=== PATIENT | female | born 1990 | race Caucasian/White ===

== ENCOUNTER 2019-07-24 09:04 | Emergency (ER) | payer OTHER ==
[2019-07-24 09:12] VITALS: BP 89/54; PULSE 82; TEMP 97.5; BMI 19.5
[2019-07-24] MEDS ORDERED: DEXAMETHASONE LIQUID 0.5 MG/5 ML PO ONE (09:16)
[2019-07-24] MEDS ORDERED: DEXAMETHASONE SOD PHOSPHATE 10 MG/1 ML VIAL ONE (09:21)
--- NOTE | 2019-07-24 09:27 | PDOC ---
History of Present Illness - General Chief Complaint: Hives Stated Complaint: HIVES Time Seen by Provider: 07/24/19 09:11 - History of Present Illness Initial Comments: 07/24/19 09:17 CHIEF COMPLAINT: hives HISTORY OF PRESENT ILLNESS: 29 yo F presents to [facility] with rash to entire body since last night. Patient reports a history of breaking out into hives and is followed by an hazardous substances scientist. She reports "having this problem since I was little, and usually I take an allergy pill like claritin and it's fine." She reports taking Claritin this morning without relief. Denies any difficulty breathing, denies any swelling to lips, mouth, tongue, throat, neck. No recent travel or sick contacts. PAST MEDICAL HISTORY: Denies past medical history FAMILY HISTORY: Denies SOCIAL HISTORY: Denies tobacco, alcohol, illicit drug use. SURGICAL HISTORY: Denies ALLERGIES: No known drug allergies REVIEW OF SYSTEMS General/Constitutional: Denies fever or chills. Denies weakness, weight change. HEENT: Denies change in vision. Denies ear pain or discharge. Denies sore throat. Cardiovascular: Denies chest pain or shortness of breath. Respiratory: Denies cough, wheezing, or hemoptysis. Gastrointestinal: Denies nausea, vomiting, diarrhea or constipation. Denies rectal bleeding. Genitourinary: Denies dysuria, frequency, or change in urination. Musculoskeletal: Denies joint or muscle swelling or pain. Denies neck or back pain. Skin: Rash since last night. Neurologic: Denies headache, vertigo, loss of consciousness, or loss of sensation. Psychiatric: Denies depression or anxiety. PHYSICAL EXAM General Appearance: Well-appearing, appropriately dressed. No apparent distress , no intoxication. HEENT: EOMI, PERRLA, normal ENT inspection, normal voice, TMs normal, pharynx normal. No conjunctival pallor. No photophobia, scleral icterus. Neck: Supple. Trachea midline. No tenderness, rigidity, carotid bruit, stridor , lymphadenopathy, or thyromegaly. Respiratory/Chest: Lungs CTAB. No shortness of breath, chest tenderness, respiratory distress, accessory muscle use. No crackles, rales, rhonchi, stridor , wheezing, dullness Cardiovascular: RRR. S1, S2. No JVD, murmur, bradycardia, tachycardia. Vascular Pulses: Dorsalis-Pedis (R): 2+, Dorsalis-Pedis (L): 2+ Gastrointestinal/Abdominal: Normal bowel sounds. Abdomen soft, non-distended. No tenderness or rebound tenderness. No organomegaly, pulsatile mass, guarding , hernia, hepatomegaly, splenomegaly. Lymphatic: No adenopathy, tenderness. Musculoskeletal/Extremities: Normal inspection. FROM of all extremities, normal capillary refill. Pelvis Stable. No CVA tenderness. No tenderness to extremities, pedal edema, swelling, erythema or deformity. Integumentary: Erythematous, blanching, macular rash to entire body. Appropriate color, dry, warm. No cyanosis, erythema, jaundice. Neurologic: puzzle assembler II-XII intact. Fully oriented, alert. Appropriate mood/affect. Motor strength 5/5. No appreciable EOM palsy, facial droop or sensory deficit. Past History - Past Medical History Allergies/Adverse Reactions: Allergies Allergy/AdvReac Type Severity Reaction Status Date / Time No Known Allergies Allergy Verified 07/24/19 09:07 - Psycho Social/Smoking Cessation Hx Smoking History: Current some day smoker Number of Cigarettes Smoked Daily: 1 Information on smoking cessation initiated: Yes Hx Alcohol Use: No Drug/Substance Use Hx: No *Physical Exam - Vital Signs Last Vital Signs Temp Pulse Resp BP Pulse Ox 97.5 F L 82 20 89/54 L 99 07/24/19 09:08 07/24/19 09:08 07/24/19 09:08 07/24/19 09:08 07/24/19 09:08 Medical Decision Making - Medical Decision Making 07/24/19 09:27 29 yo F presents to [facility] with rash to entire body since last night. -Decadron Advised patient to f/u with hazardous substances scientist and of signs and symptoms for return to ER ; patient verbalized understanding and agrees to plan. Discharge - Discharge Information Problems reviewed: Yes Clinical Impression/Diagnosis: Urticaria Condition: Stable Disposition: HOME - Admission No - Follow up/Referral Referrals: Latonia Roach MD [Staff Physician] - - Patient Discharge Instructions Patient Printed Discharge Instructions: DI for Hives - Post Discharge Activity
== END 2019-07-24 09:45 | disposition home or self-care (01) ==
LOC: JERFT 09:04
DX: L50.9 Urticaria, unspecified (principal); F17.210 Nicotine dependence, cigarettes, uncomplicated
CPT/HCPCS: 99281-25

== ENCOUNTER 2019-09-25 13:55 | Emergency (ER) | payer OTHER ==
[2019-09-25 14:00] VITALS: BMI 20.3
[2019-09-25] MEDS ORDERED: ACETAMINOPHEN 1000 MG/100 ML VIAL (NON FORMULARY) IVPB ONE (14:40)
[2019-09-25] MEDS ORDERED: ONDANSETRON 4 MG/2 ML VIAL IVPB ONE (14:40)
[2019-09-25] MEDS ORDERED: SODIUM CHLORIDE 1,000 ML IV STA (14:40)
[2019-09-25] MEDS ORDERED: ACETAMINOPHEN INJECTION 100 ML IVPB ONE (14:41)
[2019-09-25] MEDS ORDERED: ONDANSETRON 4 MG/2 ML VIAL ONE (14:41)
--- NOTE | 2019-09-25 14:55 | PDOC ---
History of Present Illness - General Chief Complaint: Nausea/Vomiting Stated Complaint: NAUSEA, VOMITING, COUGH Time Seen by Provider: 09/25/19 13:58 - History of Present Illness Initial Comments: 09/25/19 14:53 29 F with no PMH presents to ED with nausea, vomiting, diarrhea. Pt states that she started having diarrhea 3 days ago. Yesterday, pt began to have nausea and vomiting, as well as fevers. Endorses lower abdominal cramps with diarrhea. Also endorses cough. Denies CP/SOB. Has 2 sick contacts at work who were diagnosed with flu. Past History - Past Medical History Allergies/Adverse Reactions: Allergies Allergy/AdvReac Type Severity Reaction Status Date / Time No Known Allergies Allergy Verified 09/25/19 13:57 Home Medications: Ambulatory Orders Oseltamivir Phosphate [Tamiflu -] 75 mg PO BID #10 capsule 09/25/19 COPD: No Other medical history: pt denies - Psycho Social/Smoking Cessation Hx Smoking History: Never smoked Have you smoked in the past 12 months: No Number of Cigarettes Smoked Daily: 1 Information on smoking cessation initiated: No Hx Alcohol Use: No Drug/Substance Use Hx: No Review of Systems - Review of Systems Comments:: 09/25/19 14:54 "GENERAL/CONSTITUTIONAL: No fever or chills. No weakness. HEAD, EYES, EARS, NOSE AND THROAT: No change in vision. No ear pain or discharge. No sore throat. CARDIOVASCULAR: No chest pain, no shortness of breath, no loss of consciousness RESPIRATORY: + cough, no wheezing, or hemoptysis. GASTROINTESTINAL: + nausea, + vomiting, + diarrhea GENITOURINARY: No dysuria, frequency, or change in urination. MUSCULOSKELETAL: No joint or muscle swelling or pain. No neck or back pain. SKIN: No rash NEUROLOGIC: No vertigo, no change in strength/sensation. ENDOCRINE: No increased thirst. No abnormal weight change. HEMATOLOGIC/LYMPHATIC: No anemia, easy bleeding, or history of blood clots. ALLERGIC/IMMUNOLOGIC: No hives or skin allergy. *Physical Exam - Vital Signs Last Vital Signs Temp Pulse Resp BP Pulse Ox 101.3 F H 115 H 20 91/67 97 09/25/19 13:55 09/25/19 13:55 09/25/19 13:55 09/25/19 13:55 09/25/19 13:55 - Physical Exam 09/25/19 14:55 "GENERAL: Awake, alert, and fully oriented, in no acute distress. HEAD: No signs of trauma EYES: PERRLA, EOMI, sclera anicteric, conjunctiva clear ENT: Auricles normal inspection, hearing grossly normal, nares patent, oropharynx clear without exudates. Moist mucosa NECK: Nontender, no stepoffs, Normal ROM, supple, no lymphadenopathy, JVD, or masses LUNGS: Breath sounds equal, clear to auscultation bilaterally. No wheezes, and no crackles HEART: Regular rate and rhythm, normal S1 and S2, no murmurs, rubs or gallops ABDOMEN: Soft, nontender, normoactive bowel sounds. No guarding, no rebound. No masses EXTREMITIES: Normal range of motion, no edema. No clubbing or cyanosis. No cords, erythema, or tenderness NEUROLOGICAL: Cranial nerves II through XII intact. 5/5 strength and sensation in all extremities, Normal speech, normal gait, normal cerebellar function SKIN: Warm, Dry, normal turgor, no rashes or lesions noted. ED Treatment Course - LABORATORY CBC & Chemistry Diagram: 09/25/19 14:50 09/25/19 14:50 - RADIOLOGY Radiology Studies Ordered: Category Date Time Status CHEST X-RAY PORTABLE* [RAD] Stat Radiology 09/25/19 14:40 Ordered Medical Decision Making - Medical Decision Making 09/25/19 14:55 29 F with fever, N+V+D. Benign abdominal exam. Likely viral gastroenteritis. - Labs - Flu swab - CXR, UA - IVF, GI cocktail 09/25/19 16:24 Pt flu A + Labs otherwise unremarkable Will start tamiflu Pt reassessed - feels much better, tolerating PO Pt is well appearing, with normal vitals. Clinically stable for DC at this time. I discussed the physical exam findings, ancillary test results and final diagnoses with the patient. I answered all of the patient's questions. The patient was satisfied with the care received and felt comfortable with the discharge plan and treatment plan. The patient agrees to follow up with the primary care physician within 24-72 hours. Discharge - Discharge Information Problems reviewed: Yes Clinical Impression/Diagnosis: Nausea & vomiting, Fever, Influenza A Condition: Stable Disposition: HOME - Additional Discharge Information Prescriptions: Oseltamivir Phosphate [Tamiflu -] 75 mg PO BID #10 capsule - Follow up/Referral - Patient Discharge Instructions Patient Printed Discharge Instructions: DI for Influenza -- Adult Additional Instructions: You have the flu. Take the tamiflu as prescribed to help shorten the duration of your symptoms. Take tylenol or motrin as needed for fevers. Drink plenty of fluids. If you experience worsening symptoms, abdominal pain, high or persistent fevers , or any other concerning symptoms, return to the ER immediately. Otherwise, follow up with your primary doctor within 1 week. - Post Discharge Activity Work/Back to School Note: Back to Work
[2019-09-25 15:08] LABS: BASO % 0.2 % (0-2.0); HEMOGLOBIN 13.3 GM/dl (10.7-15.3); MCH 30.6 pg (25.7-33.7); MCHC 33.3 g/dl (32.0-36.0); MEAN CELL VOLUME 91.9 fl (80-96); MEAN PLT VOLUME 8.1 fl (7.5-11.1); MONO % 12.5 % (3.8-10.2); NEUT % 82.3 % (42.8-82.8); PLATELET COUNT 238 K/MM3 (134-434); RBC 4.35 M/mm3 (3.60-5.2); RDW 11.4 % (11.6-15.6); WHITE BLOOD COUNT 5.9 K/mm3 (4.0-10.8)
[2019-09-25] MEDS ORDERED: FAMOTIDINE 20 MG/50 ML IVPB 20 MG/50 ML MG IVPB ONE ×2 (15:08→15:15)
[2019-09-25 15:19] LABS: ALBUMIN 4.5 g/dl (3.4-5.0); CALCIUM 8.6 mg/dl (8.5-10); CREATININE 0.7 mg/dl (0.55-1.3); POTASSIUM 3.6 mmol/L (3.5-5.1); TOT PROT 8.2 g/dl (6.4-8.2)
[2019-09-25 15:24] LABS: EPITHELIAL CELLS FEW /hpf; URINE MUCUS 2+
[2019-09-25] MEDS ORDERED: OSELTAMIVIR PHOSPHATE 75 MG CAPSULE PO ONE (16:24)
[2019-09-25] MEDS ORDERED: OSELTAMIVIR PHOSPHATE 75 MG CAPSULE ONE (16:33)
[2019-09-25 16:36] VITALS: BP 99/53; PULSE 95; TEMP 99.6
== END 2019-09-25 17:25 | disposition home or self-care (01) ==
LOC: FER 13:55
PROC: 3E033NZ Introduction of Analgesics, Hypnotics, Sedatives into Peripheral Vein, Percutaneous Approach (ICD-10-PCS; principal; 2019-09-25)
PROC: 3E033GC Introduction of Other Therapeutic Substance into Peripheral Vein, Percutaneous Approach (ICD-10-PCS; 2019-09-25)
DX: J09.X2 Influenza due to identified novel influenza A virus with other respiratory manifestations (principal); R50.9 Fever, unspecified; R11.2 Nausea with vomiting, unspecified
CPT/HCPCS: 36415; 71045-TC-FY; 80053; 81003; 81015; 83690; 84703; 85025; 87804; 99283-25; J0131; J7030

== ENCOUNTER 2020-04-17 01:11 | Emergency (ER) | payer OTHER ==
--- NOTE | 2020-04-17 01:34 | PDOC ---
History of Present Illness <Gina Faustin - Last Filed: 04/17/20 02:05> - General History Source: Patient Exam Limitations: No Limitations - History of Present Illness Initial Comments: 04/17/20 01:48 29yF w PMHx HTN presenting w 5d generalized raised itchy lesions and subjective throat swelling. Not relieved w benadryl, Adrian. Denies new detergent, food. Extensively worked up with durability engineer in past, intermittedly gets similar ge neralized rash with weather/stress changes. Denies fever, SOB, cough, wheezing <Bob Majano - Last Filed: 04/17/20 03:07> - General Chief Complaint: Hives Stated Complaint: ALLERGIC REACTION Time Seen by Provider: 04/17/20 01:34 Past History <Gina Faustin - Last Filed: 04/17/20 02:05> - Medical History COPD: No - Psycho-Social/Smoking History Smoking History: Never smoked Have you smoked in the past 12 months: No Number of Cigarettes Smoked Daily: 1 Information on smoking cessation initiated: No - Substance Abuse Hx (Audit-C & DAST Scrn) How often the patient has a drink containing alcohol: Monthly or less How often the patient has six or more drinks on one occasion: Less than monthly Score: In Men: 4 or > Positive; In Women: 3 or > Positive: 2 Screen Result (Pos requires Nsg. Audit-10AR): Negative In the last yr the pt used illegal drug/Rx for NonMed reason: No Score: Yes response is considered Positive: 0 Screen Result (Positive result requires Nsg. DAST-10): Negative <Bob Majano - Last Filed: 04/17/20 03:07> - Medical History Allergies/Adverse Reactions: Allergies Allergy/AdvReac Type Severity Reaction Status Date / Time No Known Allergies Allergy Verified 04/17/20 01:33 Home Medications: Ambulatory Orders predniSONE [Deltasone -] 40 mg PO DAILY 5 Days #5 tablet 04/17/20 Review of Systems - Review of Systems Constitutional: No: Chills, Fever HEENTM: No: Eye Pain, Nose Congestion, Difficulty Swallowing Respiratory: No: Cough, Shortness of Breath Cardiac (ROS): No: Chest Pain, Lightheadedness ABD/GI: No: Nausea, Vomiting : No: Burning, Dysuria Musculoskeletal: No: Back Pain, Joint Pain Integumentary: No: Bruising, Dryness Neurological: No: Headache, Seizure Psychiatric: Yes: Stressors. No: Anxiety, Depression Endocrine: No: Intolerance to Cold, Intolerance to Heat Hematologic/Lymphatic: No: Anemia, Blood Clots <Bob Majano - Last Filed: 04/17/20 03:07> *Physical Exam - Vital Signs Last Vital Signs Temp Pulse Resp BP Pulse Ox 98.6 F 84 18 117/86 98 04/17/20 01:30 04/17/20 01:30 04/17/20 01:30 04/17/20 01:30 04/17/20 01:30 <Gina Faustin - Last Filed: 04/17/20 02:05> - Vital Signs Last Vital Signs Temp Pulse Resp BP Pulse Ox 98.6 F 84 18 117/86 98 04/17/20 01:30 04/17/20 01:30 04/17/20 01:30 04/17/20 01:30 04/17/20 01:30 - Physical Exam General Appearance: Yes: Nourished, Appropriately Dressed, Mild Distress HEENT: positive: EOMI, BAILEY, Normal Voice, Hearing Grossly Normal. negative: Scleral Icterus (R), Scleral Icterus (L), Pharyngeal Erythema, Tonsillar Exudate, Tonsillar Erythema (no oropharynx swelling) Neck: positive: Other (no neck swelling) Respiratory/Chest: positive: Lungs Clear, Normal Breath Sounds. negative: Chest Tender, Respiratory Distress, Crackles, Rales, Rhonchi, Stridor, Wheezing Cardiovascular: positive: Regular Rhythm, Regular Rate, S1, S2. negative: Edema, Murmur Gastrointestinal/Abdominal: positive: Normal Bowel Sounds, Flat, Soft. negative: Tender, Organomegaly Integumentary: positive: Other (raised confluent lesions limbs/trunk) Neurologic: positive: Fully Oriented, Alert, Normal Mood/Affect, Normal Response, Responsive <Bob Majano - Last Filed: 04/17/20 03:07> ED Treatment Course - Medications Given in the ED: ED Medications Discontinued Medications Generic Name Dose Route Start Last Admin Trade Name Freq PRN Reason Stop Dose Admin Diphenhydramine HCl 25 mg 04/17/20 01:47 04/17/20 02:05 Benadryl Injection - IVPB 04/17/20 01:48 25 mg ONCE ONE Administration Sodium Chloride 1,000 ml 04/17/20 01:47 04/17/20 02:04 Normal Saline - IV 04/17/20 01:48 1,000 ml ONCE ONE Administration <Gina Faustin - Last Filed: 04/17/20 02:05> Medical Decision Making - Medical Decision Making 04/17/20 01:47 29yF w PMHx HTN presenting w 5d generalized itchy rash. Likely allergic reaction vs autoimmune rash. No respiratory distress, vitals wnl Given 1L NS, pepcid, benadryl, prednisone DC home w PCP f/u, prednisone <Bob Majano - Last Filed: 04/17/20 03:07> Discharge <Gina Faustin - Last Filed: 04/17/20 02:05> - Discharge Information Problems reviewed: Yes <Bob Majano - Last Filed: 04/17/20 03:07> - Discharge Information Clinical Impression/Diagnosis: Hives Condition: Improved Disposition: HOME - Additional Discharge Information Prescriptions: predniSONE [Deltasone -] 40 mg PO DAILY 5 Days #5 tablet - Patient Discharge Instructions Patient Printed Discharge Instructions: DI for Hives Additional Instructions: Take the prescribed Prednisone as directed Take benadryl or adrian if your rash is itchy Follow up with your primary care doctor
[2020-04-17 01:45] VITALS: BP 117/86; PULSE 84; TEMP 98.6; BMI 18.9
[2020-04-17] MEDS ORDERED: SODIUM CHLORIDE 0.9% 500 ML INFUS.BAG IV ONE (01:47)
[2020-04-17] MEDS ORDERED: FAMOTIDINE 20 MG/50 ML IVPB 50 ML IVPB ONE (01:47)
[2020-04-17] MEDS ORDERED: FAMOTIDINE 20 MG/50 ML IVPB 20 MG/50 ML MG IVPB ONE ×2 (01:52→02:19)
[2020-04-17] MEDS ORDERED: predniSONE 20 MG TABLET (UD) PO ONE (02:09)
--- NOTE | 2020-04-17 02:13 | PDOC ---
Documentation entered by Yunier Nguyễn SCRIBE, acting as scribe for Gina Faustin MD. Gina Faustin MD: This documentation has been prepared by the scribe, Yunier Nguyễn SCRIBE, under my direction and personally reviewed by me in its entirety. I confirm that the documentation accurately reflects all work, treatment, procedures, and medical decision making performed by me. Attending Attestation - Resident Resident Name: Bob Majano - ED Attending Attestation I have performed the following: I have examined & evaluated the patient, The case was reviewed & discussed with the resident, I agree w/resident's findings & plan, Exceptions are as noted - HPI HPI: 29 yo F history HTN presents with rash diffusely over her body for the past 5 days. She has had prior outbreaks that were similar in the past, occurring approximately once yearly. She has been extensively worked up by allergists in the past, including scratch test and blood testing. No identified allergy. She states she has been taking Aracely and benadryl at home, but now with it involving her face, she presented to the ED. - Physicial Exam PE: 04/17/20 01:34 GENERAL: Awake, alert, and fully oriented, in no acute distress HEAD: No signs of trauma. Mild swelling over the nasal bridge and cheeks. EYES: PERRLA, EOMI, sclera anicteric, conjunctiva clear ENT: Auricles normal inspection, hearing grossly normal, nares patent, oropharynx clear without exudates. Moist mucosa. No mucosal lesions NECK: Normal ROM, supple, no lymphadenopathy, JVD, or masses LUNGS: Breath sounds equal, clear to auscultation bilaterally. No wheezes, and no crackles HEART: Regular rate and rhythm, normal S1 and S2, no murmurs, rubs or gallops ABDOMEN: Soft, nontender, normoactive bowel sounds. No guarding, no rebound. No masses EXTREMITIES: Normal range of motion, no edema. No clubbing or cyanosis. No cords, erythema, or tenderness NEUROLOGICAL: Cranial nerves II through XII grossly intact. Normal speech, normal gait SKIN: Warm, Dry, normal turgor. +Erythematous raised confluent rash to the trunk and limbs, with surrounding pallor. - Medical Decision Making Rash is not typical for urticaria- surrounding blanching is atypical, as is the confluence of the erythematous lesions. This may be autoimmune, unclear. As she has responded to antihistamines in the past, will treat accordingly, as well as with steroids given the extensiveness of the rash. Discharge - Discharge Information Problems reviewed: Yes Clinical Impression/Diagnosis: Rash Condition: Stable - Follow up/Referral - Patient Discharge Instructions - Post Discharge Activity
[2020-04-17] MEDS ORDERED: predniSONE 20 MG TABLET (UD) ONE (02:59)
== END 2020-04-17 03:38 | disposition home or self-care (01) ==
LOC: JER 01:11
PROC: 3E033NZ Introduction of Analgesics, Hypnotics, Sedatives into Peripheral Vein, Percutaneous Approach (ICD-10-PCS; principal; 2020-04-17)
PROC: 3E033GC Introduction of Other Therapeutic Substance into Peripheral Vein, Percutaneous Approach (ICD-10-PCS; 2020-04-17)
DX: L50.9 Urticaria, unspecified (principal)
CPT/HCPCS: 99285-25